=== PATIENT | female | born 1980 | race Caucasian/White ===

== ENCOUNTER 2019-08-26 10:03 | Emergency (ER) | payer OTHER ==
[~2019-08-26] VITALS: Ht 167.6 cm; Wt 81.7 kg
[~2019-08-26 10:03] MED LIST: ACYCLOVIR PO; CARISOPRODOL 3350 MG PO; CYCLOBENZAPRINE5 MG PO; FLEXERIL PO; HYDROCODONE-AP1 EAC6 PO; IBUPROFEN 800800 M1 PO; MEDROL DOSPAK21 TA1 PO; MEDROLDOSEPACK PO; NOHOMEMEDICATIONS; NORCO 5-325 TA1 EACH PO; NORFLEX100 MG PO; OSELB75 PO; PERCOCET 5-3251 EACH PO; PROZAC 20 MG20 M1 PO; ROBAXIN 750 MG750 M1 PO; TUSSIONEX PENN473 ML PO; ZOVIRAX 20200 MG/51 PO
[2019-08-26] MEDS ORDERED: BUSPIRONE HCL10 MG PO (10:14)
[2019-08-26] MEDS ORDERED: LEXAPRO 10 MG T10 M2 PO (10:14)
[2019-08-26] MEDS ORDERED: NAPROXEN SODIU220 M2 PO (10:14)
[2019-08-26 10:19] LABS: URINE BILIRUBIN NEGATIVE (Negative); URINE BLOOD NEGATIVE (Negative); URINE CLARITY CLEAR; URINE COLOR YELLOW; URINE GLUCOSE-RANDOM NEGATIVE (Negative); URINE KETONES NEGATIVE (Negative); URINE LEUKOCYTES-REFLEX NEGATIVE (Negative); URINE NITRITE-REFLEX NEGATIVE (Negative); URINE PROTEIN NEGATIVE (Negative); URINE UROBILINOGEN 0.2 E.U./dl (0.2-1.0)
[2019-08-26] MEDS ORDERED: NORCO 5-325 TA1 EAC1 PO (10:33)
[2019-08-26] MEDS ORDERED: FLEXERIL PO (10:33)
[2019-08-26] MEDS ORDERED: PREDNISONE50 MG PO (10:33)
[2019-08-26 10:38] VITALS: BP 106/49
== END 2019-08-26 10:38 | disposition home or self-care (01) ==
LOC: M.ERS 10:03
PROVIDERS: Emergency Medicine Emergency Medical Services
DX: M54.42 Lumbago with sciatica, left side (principal); R19.7 Diarrhea, unspecified; R53.83 Other fatigue